=== PATIENT | female | born 1990 | race Caucasian/White ===

== ENCOUNTER 2016-03-03 10:09 | Emergency (ER) | payer OTHER ==
[~2016-03-03] VITALS: Ht 162.6 cm; Wt 83.9 kg
[2016-03-03 10:12] VITALS: BP 180/102
--- NOTE | 2016-03-03 10:17 | ED GENERAL ADULT ---
History of Present Illness General Chief Complaint: General Adult Stated Complaint: NEEDLE STICK Source: patient Exam Limitations: no limitations Vital Signs & Intake/Output Vital Signs & Intake/Output Vital Signs Date Time Temp Pulse Resp B/P Pulse O2 O2 Flow FiO2 Ox Delivery Rate 03/03 1012 97.7 90 18 180/102 100 Room Air Triage Note: PT STATES THAT SHE WAS STUCK BY DIRTY SUTURING MATERIAL AT 0930. PT HAS HISTORY OF HEP C. PT IMMEDIATLY REMOVED GLOVES AND WASHED HAND MILKING THE FINGER. L THUMB Triage Nurses Notes Reviewed? 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 She reports that she was suturing a patient when she accidentally stuck the needle to her left first finger. She reports that there was a small blood that came from it. She wants her fingers immediately. Denies history of HIV or hepatitis. Up-to-date with all immunizations including tetanus. Denies any pain. Denies any numbness or tingling. No nausea or vomiting. (MERRICK ROCHE) Past History Travel History Traveled to [place] past 21 day No Medical History Any Pertinent Medical History? see below for history Neurological: NONE EENT: NONE Cardiovascular: NONE Respiratory: NONE Gastrointestinal: NONE Hepatic: NONE Renal: NONE Musculoskeletal: NONE Psychiatric: NONE Endocrine: NONE Blood Disorders: NONE Cancer(s): NONE USER SUPPORT ANALYST SUPERVISOR/Reproductive: NONE Surgical History Surgical History: non-contributory Psychosocial History What is your primary language Cam[place]onian Tobacco Use: Never used ETOH Use: denies use Illicit Drug Use: denies illicit drug use Family History Hx Contributory? No (MERRICK ROCHE) Review of Systems Review of Systems Constitutional: Reports: no symptoms. Comments Review of systems: See HPI, All other systems negative. Constitutional, no chills fever or weight loss HEENT: No visual changes no sore throat no congestion Cardiovascular: No chest pain ,palpitation , orthopnea or ankle swelling Skin, no jaundice no rashes Respiratory: No dyspnea cough sputum or hemoptysis GI: No nausea no vomiting : No dysuria No hematuria Muscle skeletal: no back pain, no neck pain, Neurologic: No numbness no confusion Psych: No stress anxiety Immunology: No splenectomy or history of AIDS, up-to-date with immunizations (MERRICK ROCHE) Physical Exam Physical Exam General Appearance: well developed/nourished, no apparent distress, alert, awake , comfortable Comments: Well-developed well-nourished no apparent distress. HEENT: Atraumatic, extraocular motion intact Neck: Supple, no lymphadenopathy Back: Nontender Respiratory: No respiratory distress Extremities: No edema, full range of motion SKIN: SMALL PIN PRINT ABRASION ON THE DISTAL TIP OF THE LEFT THUMB. NO PAIN. NO ERYTHEMA. NO ACTIVE BLEEDING. Neuro: Alert and oriented x3 Psych: Mood affect normal, normal memory normal judgment. Core Measures ACS in differential dx? No CVA/TIA Diagnosis: No Severe Sepsis Present: No Septic Shock Present: No (MERRICK ROCHE) Progress Differential Diagnoses I considered the following diagnoses in my evaluation of the patient: NEEDLE STICK prophylaxis, and he is sick injury, abrasion, contusion Plan of Care: Orders Procedure Date/time Status HIV EXPOSURE/NEEDLESTICK 03/03 1017 Active HUMAN BETA HCG SCREEN 03/03 1017 Active HEPT C ANTIBODY 03/03 1017 Active HEPT B SURFACE ANTIBODY 03/03 1017 Active GAMMA GLUTAMYL TRANSFERASE 03/03 1017 Active COMPREHENSIVE METABOLIC PANEL 03/03 1017 Active CBC WITHOUT DIFFERENTIAL 03/03 1017 Active TRNSFRASE ASPART AMINO 03/03 1017 Active TRNSFRAS ALANINE AMINO 03/03 1017 Active Initial ED EKG: none Comments: Repeat blood pressure was 144/84. (MERRICK ROCHE) Departure Departure Time of Disposition: 1040 Disposition: HOME OR SELF CARE Condition: Stable Clinical Impression Primary Impression: Needle stick injury Qualifiers: Encounter type: initial encounter Qualified Code: W27.3XXA - Contact with needle (sewing), initial encounter Additional Instructions: Follow-up with occupational medicine calL monitoring and waning. Departure Forms: Customer Survey General Discharge Information (MERRICK ROCHE) PA/SPONGE MAKER Co-Sign Statement Statement: ED Attending supervision documentation- x I saw and evaluated the patient. I have also reviewed all the pertinent lab results and diagnostic results. I agree with the findings and the plan of care as documented in the PA's/SPONGE MAKER's documentation. [] I have reviewed the ED Record and agree with the PA's/SPONGE MAKER's documentation. [] Additions or exceptions (if any) to the PAs/SPONGE MAKER's note and plan are summarized below: [] (KATHARINE SANCHEZ,KATHY) Critical Care Note Critical Care Note Critical Care Time: 30-74 min (BRIAN DURAND,MERRICK)
[2016-03-03 11:31] LABS: ABSOLUTE BASOPHIL COUNT 0.1 /CUMM (0.0-0.2); ABSOLUTE EOSINOPHIL COUNT 0 /CUMM (0.0-0.7); ABSOLUTE GRANULOCYTE CT 5.1 /CUMM (1.4-6.5); ABSOLUTE LYMPH COUNT 2.7 /CUMM (1.2-3.4); ABSOLUTE MONOCYTE COUNT 0.6 /CUMM (0.10-0.60); BASOPHIL % 0.7 % (0.0-2.0); EOSINOPHIL % 0.3 % (0-5); GRANULOCYTE % 59.6 % (42.2-75.2); HEMATOCRIT 40.5 % (37-47); MEAN CORPUSCULAR HGB CONC 33.1 G/DL (33.0-37.0); MEAN CORPUSCULAR VOLUME 84.7 FL (81.0-99.0); MEAN PLATELET VOLUME 8.4 FL (7.4-10.4); PLATELET COUNT 313 /CUMM (130-400); RBC DISTRIBUTION WIDTH 13.3 % (11.5-14.5); RED BLOOD CELL CT 4.78 /CUMM (4.20-5.40); WHITE BLOOD CELL COUNT 8.5 /CUMM (4.8-10.8)
== END 2016-03-03 10:42 ==
LOC: ERH 10:09
PROVIDERS: Physician Assistant
DX: S61.032A Puncture wound without foreign body of left thumb without damage to nail, initial encounter (principal); W46.1XXA Contact with contaminated hypodermic needle, initial encounter
CPT/HCPCS: 86803; 87389